=== PATIENT | female | born 1975 | race Caucasian/White ===

== ENCOUNTER 2017-12-26 14:12 | Emergency (ER) | payer BC ==
[2017-12-26 14:54] LABS: ADD MAN DIFF? NO
[2017-12-26 14:58] LABS: BASO # 0.1 x10^3/uL (0.0-0.2); BASO % 1 % (0-3); EOS # 0.1 x10^3/uL (0.0-0.7); EOS % 1 % (0-3); HEMATOCRIT 38.3 % (36.0-47.0); HEMOGLOBIN 12.8 g/dL (12.0-15.5); LYMPH # 3.1 x10^3/uL (1.0-4.8); LYMPH % 35 % (24-48); MEAN CORPUSCULAR HEMOGLOBIN 28 pg (25-35); MEAN CORPUSCULAR HGB CONC 33 g/dL (31-37); MEAN CORPUSCULAR VOLUME 83 fL (79-100); MONO # 0.6 x10^3/uL (0.0-1.1); MONO % 6 % (0-9); NEUT # 5.1 x10^3uL (1.8-7.7); NEUT % 57 % (31-73); PLATELET COUNT 319 x10^3/uL (140-400); RED BLOOD COUNT 4.61 x10^6/uL (3.50-5.40); RED CELL DISTRIBUTION WIDTH 15.1 % (11.5-14.5); WHITE BLOOD COUNT 8.9 x10^3/uL (4.0-11.0)
[2017-12-26 15:08] LABS: ANION GAP 10 (6-14); BLOOD UREA NITROGEN 11 mg/dL (7-20); CARBON DIOXIDE 25 mmol/L (21-32); CHLORIDE 105 mmol/L (98-107); CREATININE 0.7 mg/dL (0.6-1.0); GFR 92.2; GLUCOSE 96 mg/dL (70-99); POTASSIUM 3.6 mmol/L (3.5-5.1); SODIUM 140 mmol/L (136-145)
[2017-12-26 15:13] LABS: D-DIMER 0.33 ug/mlFEU (0.00-0.50)
[2017-12-26 15:14] LABS: ALBUMIN 3.5 g/dL (3.4-5.0); ALK PHOS 53 U/L (46-116); ALT (SGPT) 18 U/L (14-59); AST (SGOT) 12 U/L (15-37); DIRECT BILIRUBIN 0.1 mg/dL (0.0-0.2); LIPASE 153 U/L (73-393); TOTAL BILIRUBIN 0.4 mg/dL (0.2-1.0); TOTAL PROTEIN 7.1 g/dL (6.4-8.2)
[2017-12-26 15:20] LABS: TROPONINI < 0.017 ng/mL (0.000-0.055)
[2017-12-26 15:22] LABS: NT-PRO BNP 159 pg/mL (0-124)
[2017-12-26] MEDS: ASPIRIN 325 MG TABLET PO ×2 (15:23)
[2017-12-26] MEDS: NITROGLYCERIN SUBLINGUAL 0.4 MG BOTTLE OF 25. SL ×2 (15:25)
[2017-12-26] MEDS ORDERED: NITROGLYCERIN SUBLINGUAL 0.4 MG BOTTLE OF 25. SL ×2 (15:45)
[2017-12-26] MEDS ORDERED: ONDANSETRON PF 4 MG/2 ML VIAL. IV ×2 (15:45)
[2017-12-26] MEDS: IV NORMAL SALINE 1000ML BAG 1,000 ML IV ×2 (15:56)
== END 2017-12-26 16:20 | disposition left against medical advice (07) ==
LOC: ER 16:20
DX: R07.9 Chest pain, unspecified (principal); E78.00 Pure hypercholesterolemia, unspecified; Z87.891 Personal history of nicotine dependence; Z88.2 Allergy status to sulfonamides; Z88.1 Allergy status to other antibiotic agents; Z88.5 Allergy status to narcotic agent
CPT/HCPCS: 36415; 71045; 80048; 80076; 83690; 83880; 84484; 85025; 85379; 93005; 99285-25; J7030

== ENCOUNTER 2017-12-30 03:49 | Inpatient (IN) | payer BC ==
[2017-12-30 04:05] LABS: URINE HCG POC HCG NEGATIVE (Negative)
[2017-12-30] MEDS: IV NORMAL SALINE 1000ML BAG 1,000 ML IV ×7 (04:30→16:36)
[2017-12-30 04:31] LABS: ADD MAN DIFF? NO; BASO # 0.1 x10^3/uL (0.0-0.2); BASO % 1 % (0-3); EOS # 0.2 x10^3/uL (0.0-0.7); EOS % 2 % (0-3); HEMATOCRIT 37.5 % (36.0-47.0); HEMOGLOBIN 12.3 g/dL (12.0-15.5); LYMPH # 3.6 x10^3/uL (1.0-4.8); LYMPH % 36 % (24-48); MEAN CORPUSCULAR HEMOGLOBIN 27 pg (25-35); MEAN CORPUSCULAR HGB CONC 33 g/dL (31-37); MEAN CORPUSCULAR VOLUME 83 fL (79-100); MONO # 0.8 x10^3/uL (0.0-1.1); MONO % 8 % (0-9); NEUT # 5.2 x10^3uL (1.8-7.7); NEUT % 53 % (31-73); PLATELET COUNT 331 x10^3/uL (140-400); RED CELL DISTRIBUTION WIDTH 15.3 % (11.5-14.5); WHITE BLOOD COUNT 9.8 x10^3/uL (4.0-11.0)
[2017-12-30] MEDS: fentaNYL PF VIAL 100 MCG/2 ML VIAL IV ×2 (04:31→04:47)
[2017-12-30 04:33] LABS: BILIRUBIN,URINE NEGATIVE (NEG); CLARITY,URINE CLOUDY; COLOR,URINE YELLOW; GLUCOSE,URINE NEGATIVE (NEG); NITRITE,URINE NEGATIVE (NEG); PROTEIN,URINE NEGATIVE (NEG-TRACE)
[2017-12-30 04:35] LABS: AGAP ISTAT 16 mmol/L (6-14); BUN ISTAT 9 mg/dL (8-26); CHLORIDE ISTAT 106 mmol/L (98-110); CREATININE ISTAT 0.7 mg/dL (0.5-1.4); GLUCOSE ISTAT 130 mg/dL (70-99); HEMATOCRIT ISTAT 36 % (36-40); HEMOGLOBIN ISTAT 12.2 g/dL (12-15); ION CA ISTAT 1.13 mmol/L (1.13-1.32); POTASSIUM ISTAT 3.9 mmol/L (3.5-5.0); SODIUM ISTAT 142 mmol/L (135-145); TOT CO2 ISTAT 26 mmol/L (23-32)
[2017-12-30 04:45] LABS: BACTERIA,URINE FEW /HPF (0-FEW); SQUAMOUS EPITHELIAL CELL,UR FEW /LPF; WBC,URINE OCC /HPF (0-4)
[2017-12-30 04:46] LABS: AMORPHOUS SEDIMENT,UR PRESENT /HPF
[2017-12-30 04:47] LABS: ANION GAP 8 (6-14); BLOOD UREA NITROGEN 10 mg/dL (7-20); BUN/CREATININE RATIO 13 (6-20); CALCIUM 8.3 mg/dL (8.5-10.1); CARBON DIOXIDE 28 mmol/L (21-32); CHLORIDE 105 mmol/L (98-107); CREATININE 0.8 mg/dL (0.6-1.0); GLUCOSE 136 mg/dL (70-99); POTASSIUM 3.9 mmol/L (3.5-5.1); SODIUM 141 mmol/L (136-145)
[2017-12-30] MEDS: ONDANSETRON PF 4 MG/2 ML VIAL. IV (04:51)
[2017-12-30 04:52] LABS: ALBUMIN 3.2 g/dL (3.4-5.0); ALBUMIN/GLOBULIN RATIO 0.9 (1.0-1.7); ALK PHOS 51 U/L (46-116); ALT (SGPT) 20 U/L (14-59); AST (SGOT) 16 U/L (15-37); DIRECT BILIRUBIN 0.1 mg/dL (0.0-0.2); LIPASE 172 U/L (73-393); TOTAL BILIRUBIN 0.3 mg/dL (0.2-1.0); TOTAL PROTEIN 6.8 g/dL (6.4-8.2)
[2017-12-30] MEDS: KETOROLAC 30 MG/ML INJ. IV (04:54)
[2017-12-30] MEDS ORDERED: ONDANSETRON PF 4 MG/2 ML VIAL. IV ×2 (05:30→14:15)
[2017-12-30] MEDS: MORPHINE SULFATE 4 MG/ML DISP.SYRIN. IV ×5 (06:10→23:50)
[2017-12-30] MEDS: ACETAMINOPHEN 325 MG TABLET. PO ×2 (10:39→18:34)
[2017-12-30] MEDS: cefTRIAXone IV Push 1 GM VIAL. IVP (11:23)
[2017-12-30] MEDS ORDERED: IV NORMAL SALINE 1000ML BAG 1,000 ML IV (13:40)
[2017-12-30] MEDS ORDERED: VASOPRESSIN 40 UNIT in IV DEXTROSE 5% 100 ML IV (13:45)
[2017-12-30] MEDS ORDERED: EPINEPHrine VIAL 8 MG in IV NORMAL SALINE 250ML 250 ML IV (13:45)
[2017-12-30] MEDS ORDERED: IV NORMAL SALINE 500ML BAG 500 ML IV (13:45)
[2017-12-30] MEDS: ACETAMINOPHEN 650 MG SUPP.RECT. PR (14:00)
[2017-12-30] MEDS: IV RINGERS,LACTATED 1000ML 1,000 ML IV (14:02)
[2017-12-30] MEDS ORDERED: fentaNYL PF VIAL 100 MCG/2 ML VIAL IV ×2 (14:15)
[2017-12-30] MEDS ORDERED: MORPHINE SULFATE 2 MG/ML DISP.SYRIN. IV (14:15)
[2017-12-30] MEDS ORDERED: HYDROmorphone 2 MG/ML VIAL IV (14:15)
[2017-12-30] MEDS ORDERED: PROCHLORPERAZINE 10 MG/2 ML VIAL. IV (14:15)
[2017-12-30] MEDS ORDERED: LIDOCAINE 1% PF 2 ML VIAL. ID (14:15)
[2017-12-30] MEDS ORDERED: SUCCINYLCHOLINE 200 MG/10 ML VIAL. (14:34)
[2017-12-30] MEDS ORDERED: PROPOFOL 20 ML IV (14:34)
[2017-12-30 14:35] LABS: PLATELET COUNT 148 x10^3/uL (140-400)
[2017-12-30] MEDS ORDERED: FAMOTIDINE 20 MG/2 ML VIAL (14:35)
[2017-12-30] MEDS ORDERED: PHENYLEPHRINE in 0.9% NACL PF 1 MG/10 ML SYRINGE. IV (14:35)
[2017-12-30] MEDS ORDERED: ONDANSETRON PF 4 MG/2 ML VIAL. (14:35)
[2017-12-30 14:38] LABS: ALBUMIN 2.5 g/dL (3.4-5.0); ALK PHOS 72 U/L (46-116); ALT (SGPT) 18 U/L (14-59); AST (SGOT) 26 U/L (15-37); DIRECT BILIRUBIN 0.5 mg/dL (0.0-0.2); TOTAL BILIRUBIN 0.8 mg/dL (0.2-1.0); TOTAL PROTEIN 5.4 g/dL (6.4-8.2)
[2017-12-30] MEDS ORDERED: 0.9 % SODIUM CHLORIDE 50 ML VIAL. IJ (14:38)
[2017-12-30] MEDS ORDERED: LIDOCAINE 2% JELLY 6ML IN APPLICATOR. (14:38)
[2017-12-30 14:39] LABS: INR 1.3 (0.8-1.1); PROTHROMBIN TIME PATIENT 15.4 SEC (11.7-14.0)
[2017-12-30 14:40] LABS: PARTIAL THROMBOPLASTIN TIME 32 SEC (24-38)
[2017-12-30 14:40] LABS: FIBRINOGEN 253 mg/dL (200-440)
[2017-12-30] MEDS ORDERED: ROCURONIUM 50 MG/5 ML VIAL. (14:54)
[2017-12-30 14:58] LABS: D-DIMER 12.31 ug/mlFEU (0.00-0.50)
[2017-12-30] MEDS: NORMAL SALINE IV (15:00)
[2017-12-30] MEDS: DAPTOMYCIN IV (15:00)
[2017-12-30] MEDS: IOHEXOL 300 MG/ML 100ML VIAL. (15:08)
[2017-12-30] MEDS ORDERED: NEOSTIGMINE METHYLSULFATE 5 MG/5 ML SYRINGE. (15:25)
[2017-12-30] MEDS ORDERED: GLYCOPYRROLATE 1 MG/5 ML VIAL. (15:25)
[2017-12-30 15:37] LABS: BASO % 0 % (0-3); EOS % 0 % (0-3); HEMATOCRIT 34.2 % (36.0-47.0); HEMOGLOBIN 11.3 g/dL (12.0-15.5); LYMPH # 0.3 x10^3/uL (1.0-4.8); LYMPH % 6 % (24-48); MEAN CORPUSCULAR HEMOGLOBIN 28 pg (25-35); MEAN CORPUSCULAR HGB CONC 33 g/dL (31-37); MEAN CORPUSCULAR VOLUME 84 fL (79-100); MONO % 1 % (0-9); NEUT % 93 % (31-73); PLATELET COUNT 151 x10^3/uL (140-400); RED BLOOD COUNT 4.08 x10^6/uL (3.50-5.40); RED CELL DISTRIBUTION WIDTH 15.3 % (11.5-14.5); WHITE BLOOD COUNT 4.2 x10^3/uL (4.0-11.0)
[2017-12-30] MEDS ORDERED: SEVOFLURANE 31 TO 60 MINUTES. IH (15:45)
[2017-12-30] MEDS ORDERED: ALBUMIN HUMAN 5% 500 ML IV (15:45)
[2017-12-30 16:10] LABS: ADD MAN DIFF? YES
[2017-12-30 16:52] LABS: LACTIC ACID 3.8 mmol/L (0.4-2.0)
[2017-12-30 17:00] LABS: % BANDS 31 % (0-9); % LYMPHS 6 % (24-48); % METAS 3 % (0-0); % MONOS 1 % (0-10); % SEGS 59 % (35-66)
[2017-12-30 17:01] LABS: PLT ESTIMATE ADEQUATE (ADEQUATE)
[2017-12-30 17:02] LABS: TOXIC VACUOLATION PRESENT
[2017-12-30 17:03] LABS: INFLUENZA A PATIENT POSITIVE (NEGATIVE); INFLUENZA B PATIENT NEGATIVE (NEGATIVE); OBC FLU VALID
[2017-12-30] MEDS: OSELTAMIVIR 75 MG CAPSULE PO ×2 (17:46→20:34)
[2017-12-30] MEDS ORDERED: IPRATRPIUM/ALBUTEROL 0.5/2.5MG 3 ML NEBU. (17:54)
[2017-12-30] MEDS: ALBUTEROL SULFATE 2.5 MG/3 ML NEBU. NEB ×2 (18:00→20:13)
[2017-12-30 19:33] LABS: PROCALCITONIN 35.15 ng/mL (0.00-0.10)
[2017-12-31] MEDS: NOREPINEPHRIN PREMIX 250 ML IV (01:11)
[2017-12-31] MEDS: MORPHINE SULFATE 4 MG/ML DISP.SYRIN. IV (03:27)
[2017-12-31] MEDS: IV NORMAL SALINE 1000ML BAG 1,000 ML IV ×2 (06:25→09:18)
[2017-12-31 06:45] LABS: ANION GAP 15 (6-14); BLOOD UREA NITROGEN 13 mg/dL (7-20); CALCIUM 7.5 mg/dL (8.5-10.1); CARBON DIOXIDE 18 mmol/L (21-32); CHLORIDE 109 mmol/L (98-107); CREATININE 1.2 mg/dL (0.6-1.0); GFR 49.5; GLUCOSE 226 mg/dL (70-99); POTASSIUM 4.4 mmol/L (3.5-5.1); SODIUM 142 mmol/L (136-145)
[2017-12-31 07:18] LABS: BASO # 0.2 x10^3/uL (0.0-0.2); BASO % 1 % (0-3); EOS % 0 % (0-3); HEMATOCRIT 35.4 % (36.0-47.0); HEMOGLOBIN 11.2 g/dL (12.0-15.5); LYMPH # 0.6 x10^3/uL (1.0-4.8); LYMPH % 2 % (24-48); MEAN CORPUSCULAR HEMOGLOBIN 27 pg (25-35); MEAN CORPUSCULAR HGB CONC 32 g/dL (31-37); MEAN CORPUSCULAR VOLUME 85 fL (79-100); MONO # 0.9 x10^3/uL (0.0-1.1); MONO % 2 % (0-9); NEUT # 35.1 x10^3uL (1.8-7.7); NEUT % 95 % (31-73); PLATELET COUNT 167 x10^3/uL (140-400); RED BLOOD COUNT 4.17 x10^6/uL (3.50-5.40); RED CELL DISTRIBUTION WIDTH 16.1 % (11.5-14.5); WHITE BLOOD COUNT 36.7 x10^3/uL (4.0-11.0)
[2017-12-31 07:21] LABS: ADD MAN DIFF? YES
[2017-12-31] MEDS: ALBUTEROL SULFATE 2.5 MG/3 ML NEBU. NEB ×5 (08:31→19:47)
[2017-12-31] MEDS ORDERED: CEFEPIME HCL 1 GM in IV DEXTROSE 5% 50 ML IV (09:15)
[2017-12-31] MEDS: OSELTAMIVIR 75 MG CAPSULE PO ×2 (09:18→20:04)
[2017-12-31] MEDS: CEFEPIME HCL IV Push 1 GM VIAL. IVP ×3 (10:01→20:29)
[2017-12-31 10:21] LABS: % BANDS 14 % (0-9); % LYMPHS 1 % (24-48); % METAS 2 % (0-0); % MONOS 1 % (0-10); % SEGS 82 % (35-66)
[2017-12-31 10:23] LABS: PLT ESTIMATE ADEQUATE (ADEQUATE)
[2017-12-31 10:24] LABS: TOXIC VACUOLATION SLIGHT
[2017-12-31] MEDS: MORPHINE SULFATE 2 MG/ML DISP.SYRIN. IV ×3 (10:32→20:16)
[2017-12-31] MEDS: SALIVA STIMULANT AGENT 44ML SPRAY BOTTLE. PO (10:43)
[2017-12-31] MEDS: LINEZOLID 600 MG TABLET PO ×2 (10:45→20:04)
[2017-12-31] MEDS: ACETAMINOPHEN 325 MG TABLET. PO (20:03)
[2017-12-31] MEDS: LACTOBACILLUS RHAMNOSUS GG 1 CAPSULE. PO (20:04)
[2017-12-31 20:18] LABS: MRSA BY PCR Negative (Negative)
[2018-01-01] MEDS: IV NORMAL SALINE 1000ML BAG 1,000 ML IV ×2 (01:58→08:09)
[2018-01-01] MEDS: NOREPINEPHRIN PREMIX 250 ML IV (02:01)
[2018-01-01] MEDS: MORPHINE SULFATE 2 MG/ML DISP.SYRIN. IV ×2 (04:50→12:45)
[2018-01-01] MEDS: CEFEPIME HCL IV Push 1 GM VIAL. IVP ×3 (06:29→22:14)
[2018-01-01 06:56] LABS: ADD MAN DIFF? NO
[2018-01-01 07:17] LABS: BASO % 0 % (0-3); EOS # 0.1 x10^3/uL (0.0-0.7); EOS % 1 % (0-3); HEMATOCRIT 32.4 % (36.0-47.0); HEMOGLOBIN 10.5 g/dL (12.0-15.5); LYMPH % 5 % (24-48); MEAN CORPUSCULAR HEMOGLOBIN 27 pg (25-35); MEAN CORPUSCULAR HGB CONC 33 g/dL (31-37); MEAN CORPUSCULAR VOLUME 83 fL (79-100); MONO # 0.5 x10^3/uL (0.0-1.1); MONO % 3 % (0-9); NEUT % 92 % (31-73); PLATELET COUNT 126 x10^3/uL (140-400); RED BLOOD COUNT 3.89 x10^6/uL (3.50-5.40); RED CELL DISTRIBUTION WIDTH 15.7 % (11.5-14.5); WHITE BLOOD COUNT 19.6 x10^3/uL (4.0-11.0)
[2018-01-01 07:26] LABS: ANION GAP 8 (6-14); BLOOD UREA NITROGEN 11 mg/dL (7-20); CALCIUM 8.2 mg/dL (8.5-10.1); CARBON DIOXIDE 24 mmol/L (21-32); CHLORIDE 110 mmol/L (98-107); CREATININE 0.7 mg/dL (0.6-1.0); GFR 92.2; GLUCOSE 126 mg/dL (70-99); POTASSIUM 3.7 mmol/L (3.5-5.1); SODIUM 142 mmol/L (136-145)
[2018-01-01] MEDS: LACTOBACILLUS RHAMNOSUS GG 1 CAPSULE. PO ×2 (08:08→21:32)
[2018-01-01] MEDS: OSELTAMIVIR 75 MG CAPSULE PO ×2 (08:08→21:33)
[2018-01-01] MEDS: LINEZOLID 600 MG TABLET PO ×2 (08:09→22:15)
[2018-01-01 08:32] LABS: BASE EXCESS ABG -3 mmol/L (-3-3); HCO3 ABG 22 mmol/L (21-28); PCO2 ABG 36 mmHg (35-46); PH ABG 7.39 (7.35-7.45); PO2 ABG 69 mmHg (75-108); SAT O2 ABG 94 % (92-99)
[2018-01-01] MEDS: ALBUTEROL SULFATE 2.5 MG/3 ML NEBU. NEB (08:41)
[2018-01-01 09:53] LABS: FIO2 ABG 50
[2018-01-01] MEDS ORDERED: fentaNYL PF VIAL 100 MCG/2 ML VIAL (10:17)
[2018-01-01] MEDS: methylPREDNISolone SOD SUCC PF 125 MG/2 ML VIAL. IV ×3 (10:26→22:14)
[2018-01-01] MEDS: fentaNYL PF VIAL 100 MCG/2 ML VIAL IM (10:27)
[2018-01-01] MEDS: FUROSEMIDE 20 MG/2 ML VIAL. IVP (10:27)
[2018-01-01] MEDS: AMINO AC 3%/ELECTROLYTE/GLYCER 1,000 ML IV (11:16)
[2018-01-01] MEDS: SUCCINYLCHOLINE 200 MG/10 ML VIAL. IV ×2 (12:00→12:06)
[2018-01-01] MEDS: PROPOFOL 100 ML IV ×3 (12:07→17:48)
[2018-01-01] MEDS: IPRATRPIUM/ALBUTEROL 0.5/2.5MG 3 ML NEBU. NEB ×4 (12:10→23:35)
[2018-01-01] MEDS: BUDESONIDE 0.5 MG/2 ML NEBU. NEB ×2 (12:10→19:37)
[2018-01-01] MEDS ORDERED: MIDAZOLAM HCL/PF 5 MG/5 ML VIAL. (12:28)
[2018-01-01] MEDS: MIDAZOLAM HCL/PF 5 MG/5 ML VIAL. IV (13:19)
[2018-01-01] MEDS: VECURONIUM BOLUS 10 MG VIAL. IV (13:24)
[2018-01-02] MEDS: PROPOFOL 100 ML IV ×8 (01:38→23:40)
[2018-01-02] MEDS: AMINO AC 3%/ELECTROLYTE/GLYCER 1,000 ML IV ×3 (01:39→23:39)
[2018-01-02] MEDS: IV NORMAL SALINE 1000ML BAG 1,000 ML IV ×2 (01:39→10:49)
[2018-01-02] MEDS: IPRATRPIUM/ALBUTEROL 0.5/2.5MG 3 ML NEBU. NEB ×6 (03:19→23:25)
[2018-01-02] MEDS: methylPREDNISolone SOD SUCC PF 125 MG/2 ML VIAL. IV ×3 (05:48→21:12)
[2018-01-02] MEDS: CEFEPIME HCL IV Push 1 GM VIAL. IVP ×3 (06:00→21:13)
[2018-01-02 06:08] LABS: ADD MAN DIFF? NO
[2018-01-02 06:15] LABS: BASO % 0 % (0-3); EOS # 0.1 x10^3/uL (0.0-0.7); EOS % 0 % (0-3); HEMATOCRIT 30.9 % (36.0-47.0); HEMOGLOBIN 10.2 g/dL (12.0-15.5); LYMPH # 0.6 x10^3/uL (1.0-4.8); LYMPH % 3 % (24-48); MEAN CORPUSCULAR HEMOGLOBIN 27 pg (25-35); MEAN CORPUSCULAR HGB CONC 33 g/dL (31-37); MEAN CORPUSCULAR VOLUME 83 fL (79-100); MONO # 0.4 x10^3/uL (0.0-1.1); MONO % 2 % (0-9); NEUT # 18.5 x10^3uL (1.8-7.7); NEUT % 95 % (31-73); PLATELET COUNT 140 x10^3/uL (140-400); RED BLOOD COUNT 3.74 x10^6/uL (3.50-5.40); RED CELL DISTRIBUTION WIDTH 15.8 % (11.5-14.5); WHITE BLOOD COUNT 19.6 x10^3/uL (4.0-11.0)
[2018-01-02 06:33] LABS: ANION GAP 7 (6-14); BLOOD UREA NITROGEN 16 mg/dL (7-20); CALCIUM 7.8 mg/dL (8.5-10.1); CARBON DIOXIDE 29 mmol/L (21-32); CHLORIDE 108 mmol/L (98-107); CREATININE 0.6 mg/dL (0.6-1.0); GFR 110.2; GLUCOSE 186 mg/dL (70-99); POTASSIUM 3.8 mmol/L (3.5-5.1); SODIUM 144 mmol/L (136-145)
[2018-01-02 06:35] LABS: ALBUMIN 2.2 g/dL (3.4-5.0); ALK PHOS 73 U/L (46-116); ALT (SGPT) 26 U/L (14-59); AST (SGOT) 30 U/L (15-37); DIRECT BILIRUBIN 0.2 mg/dL (0.0-0.2); TOTAL BILIRUBIN 0.3 mg/dL (0.2-1.0)
[2018-01-02] MEDS: LINEZOLID 600 MG TABLET PO ×2 (07:59→21:12)
[2018-01-02] MEDS: FAMOTIDINE 20 MG/2 ML VIAL IVP ×2 (07:59→21:12)
[2018-01-02] MEDS: ENOXAPARIN 40 MG/0.4 ML SYRINGE. SQ (07:59)
[2018-01-02] MEDS: OSELTAMIVIR 75 MG CAPSULE PO ×2 (07:59→21:12)
[2018-01-02] MEDS: LACTOBACILLUS RHAMNOSUS GG 1 CAPSULE. PO ×2 (07:59→21:12)
[2018-01-02] MEDS: BUDESONIDE 0.5 MG/2 ML NEBU. NEB ×2 (08:29→19:48)
[2018-01-02 08:42] LABS: BASE EXCESS ABG -1 mmol/L (-3-3); HCO3 ABG 25 mmol/L (21-28); PCO2 ABG 50 mmHg (35-46); PH ABG 7.33 (7.35-7.45); PO2 ABG 65 mmHg (75-108); SAT O2 ABG 91 % (92-99)
[2018-01-02] MEDS ORDERED: CONTRAST GIVEN MC (09:15)
[2018-01-02 09:25] LABS: FIO2 ABG 60
[2018-01-02] MEDS: IOHEXOL 300 MG/ML 100ML VIAL. IV (09:49)
[2018-01-02] MEDS: CHLORHEXIDINE 0.12% 15 ML MOUTHWASH. MM ×2 (13:19→21:12)
[2018-01-02] MEDS: ACETAMINOPHEN 325 MG TABLET. PO (21:12)
[2018-01-03] MEDS: AMINO AC 3%/ELECTROLYTE/GLYCER 1,000 ML IV ×2 (02:09→17:38)
[2018-01-03] MEDS: PROPOFOL 100 ML IV ×6 (02:09→19:32)
[2018-01-03] MEDS: IPRATRPIUM/ALBUTEROL 0.5/2.5MG 3 ML NEBU. NEB ×5 (03:25→19:10)
[2018-01-03] MEDS: CEFEPIME HCL IV Push 1 GM VIAL. IVP ×3 (05:48→21:04)
[2018-01-03] MEDS: methylPREDNISolone SOD SUCC PF 125 MG/2 ML VIAL. IV ×3 (05:48→21:03)
[2018-01-03 05:59] LABS: ADD MAN DIFF? NO
[2018-01-03 06:04] LABS: BASO % 0 % (0-3); EOS % 0 % (0-3); HEMATOCRIT 30.5 % (36.0-47.0); LYMPH # 0.9 x10^3/uL (1.0-4.8); LYMPH % 7 % (24-48); MEAN CORPUSCULAR HEMOGLOBIN 27 pg (25-35); MEAN CORPUSCULAR HGB CONC 33 g/dL (31-37); MEAN CORPUSCULAR VOLUME 83 fL (79-100); MONO # 0.4 x10^3/uL (0.0-1.1); MONO % 3 % (0-9); NEUT # 11.7 x10^3uL (1.8-7.7); NEUT % 90 % (31-73); PLATELET COUNT 148 x10^3/uL (140-400); RED BLOOD COUNT 3.66 x10^6/uL (3.50-5.40); RED CELL DISTRIBUTION WIDTH 16.2 % (11.5-14.5)
[2018-01-03 06:16] LABS: ANION GAP 6 (6-14); BLOOD UREA NITROGEN 19 mg/dL (7-20); CALCIUM 7.8 mg/dL (8.5-10.1); CARBON DIOXIDE 29 mmol/L (21-32); CHLORIDE 109 mmol/L (98-107); CREATININE 0.5 mg/dL (0.6-1.0); GLUCOSE 175 mg/dL (70-99); POTASSIUM 3.9 mmol/L (3.5-5.1); SODIUM 144 mmol/L (136-145)
[2018-01-03] MEDS: BUDESONIDE 0.5 MG/2 ML NEBU. NEB ×2 (07:36→19:10)
[2018-01-03 08:08] LABS: BASE EXCESS ABG 1 mmol/L (-3-3); HCO3 ABG 26 mmol/L (21-28); PCO2 ABG 42 mmHg (35-46); PO2 ABG 110 mmHg (75-108); SAT O2 ABG 98 % (92-99)
[2018-01-03 08:12] LABS: FIO2 ABG 40
[2018-01-03] MEDS: CHLORHEXIDINE 0.12% 15 ML MOUTHWASH. MM ×2 (09:10→21:02)
[2018-01-03] MEDS: LINEZOLID 600 MG TABLET PO ×2 (10:12→21:03)
[2018-01-03] MEDS: ENOXAPARIN 40 MG/0.4 ML SYRINGE. SQ (10:13)
[2018-01-03] MEDS: OSELTAMIVIR 75 MG CAPSULE PO ×2 (10:13→21:03)
[2018-01-03] MEDS: IV NORMAL SALINE 1000ML BAG 1,000 ML IV ×2 (10:14→19:32)
[2018-01-03] MEDS: FAMOTIDINE 20 MG/2 ML VIAL IVP ×2 (10:14→21:03)
[2018-01-04] MEDS: PROPOFOL 100 ML IV ×6 (00:10→22:51)
[2018-01-04] MEDS: IPRATRPIUM/ALBUTEROL 0.5/2.5MG 3 ML NEBU. NEB ×7 (00:17→23:07)
[2018-01-04] MEDS: AMINO AC 3%/ELECTROLYTE/GLYCER 1,000 ML IV (01:59)
[2018-01-04] MEDS: methylPREDNISolone SOD SUCC PF 125 MG/2 ML VIAL. IV ×3 (05:10→21:26)
[2018-01-04] MEDS: CEFEPIME HCL IV Push 1 GM VIAL. IVP ×3 (05:11→21:26)
[2018-01-04 05:42] LABS: BASO % 0 % (0-3); EOS % 0 % (0-3); HEMATOCRIT 31.6 % (36.0-47.0); HEMOGLOBIN 10.3 g/dL (12.0-15.5); LYMPH # 0.9 x10^3/uL (1.0-4.8); LYMPH % 10 % (24-48); MEAN CORPUSCULAR HEMOGLOBIN 27 pg (25-35); MEAN CORPUSCULAR HGB CONC 33 g/dL (31-37); MEAN CORPUSCULAR VOLUME 83 fL (79-100); MONO # 0.7 x10^3/uL (0.0-1.1); MONO % 8 % (0-9); NEUT # 7.3 x10^3uL (1.8-7.7); NEUT % 82 % (31-73); PLATELET COUNT 153 x10^3/uL (140-400); RED BLOOD COUNT 3.82 x10^6/uL (3.50-5.40); RED CELL DISTRIBUTION WIDTH 16.1 % (11.5-14.5); WHITE BLOOD COUNT 8.9 x10^3/uL (4.0-11.0)
[2018-01-04 05:53] LABS: ADD MAN DIFF? YES
[2018-01-04 06:00] LABS: ANION GAP 5 (6-14); BLOOD UREA NITROGEN 27 mg/dL (7-20); CALCIUM 7.8 mg/dL (8.5-10.1); CARBON DIOXIDE 31 mmol/L (21-32); CHLORIDE 109 mmol/L (98-107); CREATININE 0.6 mg/dL (0.6-1.0); GFR 110.2; GLUCOSE 217 mg/dL (70-99); POTASSIUM 3.8 mmol/L (3.5-5.1); SODIUM 145 mmol/L (136-145)
[2018-01-04 07:31] LABS: BASE EXCESS ABG 2 mmol/L (-3-3); HCO3 ABG 26 mmol/L (21-28); PCO2 ABG 41 mmHg (35-46); PH ABG 7.42 (7.35-7.45); PO2 ABG 97 mmHg (75-108); SAT O2 ABG 97 % (92-99)
[2018-01-04] MEDS: BUDESONIDE 0.5 MG/2 ML NEBU. NEB ×2 (08:00→20:18)
[2018-01-04 08:10] LABS: FIO2 ABG 40
[2018-01-04] MEDS: LINEZOLID 600 MG TABLET PO (09:02)
[2018-01-04] MEDS: OSELTAMIVIR 75 MG CAPSULE PO (09:02)
[2018-01-04] MEDS: ENOXAPARIN 40 MG/0.4 ML SYRINGE. SQ (09:02)
[2018-01-04] MEDS: CHLORHEXIDINE 0.12% 15 ML MOUTHWASH. MM ×2 (09:03→21:34)
[2018-01-04] MEDS: FAMOTIDINE 20 MG/2 ML VIAL IVP ×2 (09:03→21:25)
[2018-01-04 09:29] LABS: % ATYL 1 % (0-0); % BANDS 5 % (0-9); % LYMPHS 6 % (24-48); % MONOS 7 % (0-10); % SEGS 81 % (35-66); NUCLEATED RBC 1
[2018-01-04 09:30] LABS: PLT ESTIMATE ADEQUATE (ADEQUATE)
[2018-01-04] MEDS: IV NORMAL SALINE 1000ML BAG 1,000 ML IV (20:07)
[2018-01-05] MEDS: AMINO AC 3%/ELECTROLYTE/GLYCER 1,000 ML IV (02:30)
[2018-01-05] MEDS: PROPOFOL 100 ML IV ×5 (02:43→21:21)
[2018-01-05] MEDS: IPRATRPIUM/ALBUTEROL 0.5/2.5MG 3 ML NEBU. NEB ×6 (04:05→23:29)
[2018-01-05] MEDS: methylPREDNISolone SOD SUCC PF 125 MG/2 ML VIAL. IV ×3 (05:23→21:22)
[2018-01-05] MEDS: CEFEPIME HCL IV Push 1 GM VIAL. IVP ×3 (05:23→21:21)
[2018-01-05 05:27] LABS: ADD MAN DIFF? NO
[2018-01-05 05:57] LABS: BASO % 0 % (0-3); EOS % 0 % (0-3); HEMATOCRIT 33.4 % (36.0-47.0); LYMPH # 1.1 x10^3/uL (1.0-4.8); LYMPH % 13 % (24-48); MEAN CORPUSCULAR HEMOGLOBIN 27 pg (25-35); MEAN CORPUSCULAR HGB CONC 33 g/dL (31-37); MEAN CORPUSCULAR VOLUME 83 fL (79-100); MONO # 0.8 x10^3/uL (0.0-1.1); MONO % 9 % (0-9); NEUT # 7.1 x10^3uL (1.8-7.7); NEUT % 78 % (31-73); PLATELET COUNT 191 x10^3/uL (140-400); RED BLOOD COUNT 4.03 x10^6/uL (3.50-5.40); RED CELL DISTRIBUTION WIDTH 15.8 % (11.5-14.5); WHITE BLOOD COUNT 9.1 x10^3/uL (4.0-11.0)
[2018-01-05 06:35] LABS: ANION GAP 7 (6-14); BLOOD UREA NITROGEN 26 mg/dL (7-20); CALCIUM 7.8 mg/dL (8.5-10.1); CARBON DIOXIDE 30 mmol/L (21-32); CHLORIDE 107 mmol/L (98-107); CREATININE 0.6 mg/dL (0.6-1.0); GFR 110.2; GLUCOSE 207 mg/dL (70-99); POTASSIUM 4.5 mmol/L (3.5-5.1); SODIUM 144 mmol/L (136-145)
[2018-01-05] MEDS: FAMOTIDINE 20 MG/2 ML VIAL IVP ×2 (07:58→21:22)
[2018-01-05] MEDS: ACETAMINOPHEN 325 MG TABLET. PO (07:58)
[2018-01-05] MEDS: CHLORHEXIDINE 0.12% 15 ML MOUTHWASH. MM ×2 (07:58→21:00)
[2018-01-05] MEDS: ENOXAPARIN 40 MG/0.4 ML SYRINGE. SQ (08:03)
[2018-01-05] MEDS: IV NORMAL SALINE 1000ML BAG 1,000 ML IV (08:04)
[2018-01-05 09:19] LABS: BASE EXCESS ABG 3 mmol/L (-3-3); HCO3 ABG 27 mmol/L (21-28); PCO2 ABG 40 mmHg (35-46); PH ABG 7.45 (7.35-7.45); PO2 ABG 94 mmHg (75-108); SAT O2 ABG 97 % (92-99)
[2018-01-05 09:22] LABS: FIO2 ABG 40
[2018-01-05] MEDS: BUDESONIDE 0.5 MG/2 ML NEBU. NEB ×2 (09:26→20:37)
[2018-01-05] MEDS: valACYclovir 500 MG TABLET. PO ×2 (09:48→21:22)
[2018-01-05] MEDS ORDERED: DEXTROSE 50% 25 GM / 50ML DISP.SYRIN. IV (12:30)
[2018-01-05] MEDS: INSULIN ASPART 300 UNITS/3 ML INSULN.PEN SQ (17:43)
[2018-01-05 17:44] LABS: POC GLUCOSE 166 mg/dL (70-99)
[2018-01-06] MEDS: PROPOFOL 100 ML IV ×3 (00:09→09:03)
[2018-01-06 01:02] LABS: POC GLUCOSE 151 mg/dL (70-99)
[2018-01-06 01:02] LABS: POC GLUCOSE 99 mg/dL (70-99)
[2018-01-06] MEDS: IPRATRPIUM/ALBUTEROL 0.5/2.5MG 3 ML NEBU. NEB ×5 (03:59→23:51)
[2018-01-06] MEDS: CEFEPIME HCL IV Push 1 GM VIAL. IVP ×3 (06:29→22:05)
[2018-01-06] MEDS: methylPREDNISolone SOD SUCC PF 125 MG/2 ML VIAL. IV ×3 (06:29→22:05)
[2018-01-06] MEDS: BUDESONIDE 0.5 MG/2 ML NEBU. NEB ×2 (06:57→20:00)
[2018-01-06 07:12] LABS: BASE EXCESS ABG 5 mmol/L (-3-3); HCO3 ABG 28 mmol/L (21-28); PCO2 ABG 37 mmHg (35-46); PO2 ABG 95 mmHg (75-108); SAT O2 ABG 97 % (92-99)
[2018-01-06 08:13] LABS: FIO2 ABG 40
[2018-01-06] MEDS: FAMOTIDINE 20 MG/2 ML VIAL IVP ×2 (08:17→20:47)
[2018-01-06] MEDS: valACYclovir 500 MG TABLET. PO ×2 (08:17→21:00)
[2018-01-06] MEDS: ENOXAPARIN 40 MG/0.4 ML SYRINGE. SQ (08:17)
[2018-01-06] MEDS: CHLORHEXIDINE 0.12% 15 ML MOUTHWASH. MM ×2 (08:18→21:00)
[2018-01-06 09:39] LABS: ADD MAN DIFF? NO
[2018-01-06 09:49] LABS: BASO % 0 % (0-3); EOS % 0 % (0-3); HEMOGLOBIN 11.5 g/dL (12.0-15.5); LYMPH # 1.4 x10^3/uL (1.0-4.8); LYMPH % 12 % (24-48); MEAN CORPUSCULAR HEMOGLOBIN 27 pg (25-35); MEAN CORPUSCULAR HGB CONC 34 g/dL (31-37); MEAN CORPUSCULAR VOLUME 80 fL (79-100); MONO % 8 % (0-9); NEUT # 9.3 x10^3uL (1.8-7.7); NEUT % 80 % (31-73); PLATELET COUNT 250 x10^3/uL (140-400); RED BLOOD COUNT 4.28 x10^6/uL (3.50-5.40); RED CELL DISTRIBUTION WIDTH 15.4 % (11.5-14.5); WHITE BLOOD COUNT 11.6 x10^3/uL (4.0-11.0)
[2018-01-06 10:07] LABS: ANION GAP 4 (6-14); BLOOD UREA NITROGEN 19 mg/dL (7-20); CALCIUM 8.2 mg/dL (8.5-10.1); CARBON DIOXIDE 32 mmol/L (21-32); CHLORIDE 105 mmol/L (98-107); CREATININE 0.5 mg/dL (0.6-1.0); GLUCOSE 138 mg/dL (70-99); POTASSIUM 4.6 mmol/L (3.5-5.1); SODIUM 141 mmol/L (136-145)
[2018-01-06 10:57] LABS: BASE EXCESS ABG 6 mmol/L (-3-3); HCO3 ABG 30 mmol/L (21-28); PCO2 ABG 40 mmHg (35-46); PH ABG 7.49 (7.35-7.45); PO2 ABG 80 mmHg (75-108); SAT O2 ABG 95 % (92-99)
[2018-01-06 11:01] LABS: FIO2 ABG 40
[2018-01-06] MEDS: INSULIN ASPART 300 UNITS/3 ML INSULN.PEN SQ ×3 (12:00→17:30)
[2018-01-06] MEDS: FUROSEMIDE 40 MG/4 ML VIAL. IVP (12:24)
[2018-01-06 12:33] LABS: POC GLUCOSE 115 mg/dL (70-99)
[2018-01-06] MEDS: IV NORMAL SALINE 1000ML BAG 1,000 ML IV ×2 (12:51→22:06)
[2018-01-06 17:36] LABS: POC GLUCOSE 130 mg/dL (70-99)
[2018-01-06] MEDS: MORPHINE SULFATE 2 MG/ML DISP.SYRIN. IV (17:47)
[2018-01-06] MEDS: ONDANSETRON PF 4 MG/2 ML VIAL. IV (20:48)
[2018-01-06] MEDS: ACYCLOVIR 5% TOPICAL OINT 5GM TUBE. TP (20:49)
[2018-01-07] MEDS: MORPHINE SULFATE 2 MG/ML DISP.SYRIN. IV ×3 (00:08→21:14)
[2018-01-07 00:23] LABS: POC GLUCOSE 132 mg/dL (70-99)
[2018-01-07] MEDS: IPRATRPIUM/ALBUTEROL 0.5/2.5MG 3 ML NEBU. NEB ×6 (04:08→19:28)
[2018-01-07] MEDS: INSULIN ASPART 300 UNITS/3 ML INSULN.PEN SQ ×4 (06:00→18:00)
[2018-01-07] MEDS: CEFEPIME HCL IV Push 1 GM VIAL. IVP ×3 (06:17→22:07)
[2018-01-07 06:19] LABS: ADD MAN DIFF? NO
[2018-01-07] MEDS: methylPREDNISolone SOD SUCC PF 125 MG/2 ML VIAL. IV ×2 (06:20→20:35)
[2018-01-07] MEDS: ACYCLOVIR 5% TOPICAL OINT 5GM TUBE. TP ×5 (06:20→20:34)
[2018-01-07 06:29] LABS: POC GLUCOSE 118 mg/dL (70-99)
[2018-01-07 06:33] LABS: ANION GAP 5 (6-14); BLOOD UREA NITROGEN 19 mg/dL (7-20); CALCIUM 8.1 mg/dL (8.5-10.1); CARBON DIOXIDE 30 mmol/L (21-32); CHLORIDE 103 mmol/L (98-107); CREATININE 0.4 mg/dL (0.6-1.0); GFR 175.9; GLUCOSE 128 mg/dL (70-99); POTASSIUM 4.3 mmol/L (3.5-5.1); SODIUM 138 mmol/L (136-145)
[2018-01-07 06:40] LABS: BASO % 0 % (0-3); EOS % 0 % (0-3); HEMATOCRIT 33.2 % (36.0-47.0); LYMPH # 1.8 x10^3/uL (1.0-4.8); LYMPH % 16 % (24-48); MEAN CORPUSCULAR HEMOGLOBIN 27 pg (25-35); MEAN CORPUSCULAR HGB CONC 33 g/dL (31-37); MEAN CORPUSCULAR VOLUME 82 fL (79-100); MONO # 0.8 x10^3/uL (0.0-1.1); MONO % 7 % (0-9); NEUT # 8.9 x10^3uL (1.8-7.7); NEUT % 77 % (31-73); PLATELET COUNT 271 x10^3/uL (140-400); RED BLOOD COUNT 4.06 x10^6/uL (3.50-5.40); RED CELL DISTRIBUTION WIDTH 15.5 % (11.5-14.5); WHITE BLOOD COUNT 11.5 x10^3/uL (4.0-11.0)
[2018-01-07] MEDS: BUDESONIDE 0.5 MG/2 ML NEBU. NEB ×2 (08:02→19:28)
[2018-01-07] MEDS: FAMOTIDINE 20 MG/2 ML VIAL IVP ×2 (08:06→20:34)
[2018-01-07] MEDS: CHLORHEXIDINE 0.12% 15 ML MOUTHWASH. MM ×2 (08:07→20:36)
[2018-01-07] MEDS: valACYclovir 500 MG TABLET. PO ×3 (08:07→21:00)
[2018-01-07] MEDS: ENOXAPARIN 40 MG/0.4 ML SYRINGE. SQ (08:07)
[2018-01-07 13:10] LABS: POC GLUCOSE 135 mg/dL (70-99)
[2018-01-07 17:49] LABS: POC GLUCOSE 118 mg/dL (70-99)
[2018-01-07] MEDS: IV NORMAL SALINE 1000ML BAG 1,000 ML IV (19:00)
[2018-01-07] MEDS: LIDO:MAALOX:BENADRYL 1:1:1 180 ML BOTTLE. PO (20:34)
[2018-01-08 00:04] LABS: POC GLUCOSE 115 mg/dL (70-99)
[2018-01-08] MEDS: IPRATRPIUM/ALBUTEROL 0.5/2.5MG 3 ML NEBU. NEB ×7 (00:07→22:56)
[2018-01-08] MEDS: ACYCLOVIR 5% TOPICAL OINT 5GM TUBE. TP ×5 (05:26→20:55)
[2018-01-08] MEDS: CEFEPIME HCL IV Push 1 GM VIAL. IVP (05:26)
[2018-01-08 05:57] LABS: ADD MAN DIFF? NO
[2018-01-08] MEDS: INSULIN ASPART 300 UNITS/3 ML INSULN.PEN SQ ×4 (06:00→18:00)
[2018-01-08 06:05] LABS: BASO % 0 % (0-3); EOS % 0 % (0-3); HEMATOCRIT 34.5 % (36.0-47.0); HEMOGLOBIN 10.9 g/dL (12.0-15.5); LYMPH # 1.9 x10^3/uL (1.0-4.8); LYMPH % 19 % (24-48); MEAN CORPUSCULAR HEMOGLOBIN 27 pg (25-35); MEAN CORPUSCULAR HGB CONC 32 g/dL (31-37); MEAN CORPUSCULAR VOLUME 84 fL (79-100); MONO # 0.8 x10^3/uL (0.0-1.1); MONO % 8 % (0-9); NEUT # 7.5 x10^3uL (1.8-7.7); NEUT % 73 % (31-73); PLATELET COUNT 286 x10^3/uL (140-400); RED BLOOD COUNT 4.11 x10^6/uL (3.50-5.40); RED CELL DISTRIBUTION WIDTH 15.9 % (11.5-14.5); WHITE BLOOD COUNT 10.2 x10^3/uL (4.0-11.0)
[2018-01-08 06:17] LABS: ANION GAP 6 (6-14); BLOOD UREA NITROGEN 19 mg/dL (7-20); CALCIUM 8.1 mg/dL (8.5-10.1); CARBON DIOXIDE 27 mmol/L (21-32); CHLORIDE 105 mmol/L (98-107); CREATININE 0.4 mg/dL (0.6-1.0); GFR 175.9; GLUCOSE 114 mg/dL (70-99); POTASSIUM 4.1 mmol/L (3.5-5.1); SODIUM 138 mmol/L (136-145)
[2018-01-08 06:30] LABS: POC GLUCOSE 106 mg/dL (70-99)
[2018-01-08] MEDS: IV NORMAL SALINE 1000ML BAG 1,000 ML IV ×2 (08:00→15:12)
[2018-01-08] MEDS: ENOXAPARIN 40 MG/0.4 ML SYRINGE. SQ (08:00)
[2018-01-08] MEDS: BUDESONIDE 0.5 MG/2 ML NEBU. NEB ×2 (08:00→19:06)
[2018-01-08] MEDS: FAMOTIDINE 20 MG/2 ML VIAL IVP ×2 (08:00→20:55)
[2018-01-08] MEDS: valACYclovir 500 MG TABLET. PO ×2 (08:01→20:55)
[2018-01-08] MEDS: methylPREDNISolone SOD SUCC PF 40 MG/ML VIAL. IV ×2 (08:01→20:55)
[2018-01-08] MEDS: CHLORHEXIDINE 0.12% 15 ML MOUTHWASH. MM ×2 (08:07→21:00)
[2018-01-08 11:53] LABS: POC GLUCOSE 113 mg/dL (70-99)
[2018-01-08] MEDS: LIDO:MAALOX:BENADRYL 1:1:1 180 ML BOTTLE. PO ×2 (15:11→20:56)
[2018-01-08] MEDS: CEFEPIME HCL 1 GM in IV NORMAL SALINE 50ML 50 ML IV ×2 (15:11→23:35)
[2018-01-08] MEDS: ONDANSETRON PF 4 MG/2 ML VIAL. IV ×2 (16:13→23:35)
[2018-01-08 17:36] LABS: POC GLUCOSE 95 mg/dL (70-99)
[2018-01-09] MEDS: MORPHINE SULFATE 2 MG/ML DISP.SYRIN. IV ×3 (01:12→14:47)
[2018-01-09 01:49] LABS: POC GLUCOSE 140 mg/dL (70-99)
[2018-01-09] MEDS: IPRATRPIUM/ALBUTEROL 0.5/2.5MG 3 ML NEBU. NEB ×6 (03:24→23:41)
[2018-01-09 05:14] LABS: ADD MAN DIFF? NO
[2018-01-09 05:21] LABS: BASO % 0 % (0-3); EOS % 0 % (0-3); HEMATOCRIT 35.7 % (36.0-47.0); HEMOGLOBIN 11.7 g/dL (12.0-15.5); LYMPH # 2.5 x10^3/uL (1.0-4.8); LYMPH % 22 % (24-48); MEAN CORPUSCULAR HEMOGLOBIN 27 pg (25-35); MEAN CORPUSCULAR HGB CONC 33 g/dL (31-37); MEAN CORPUSCULAR VOLUME 83 fL (79-100); MONO # 0.8 x10^3/uL (0.0-1.1); MONO % 7 % (0-9); NEUT % 71 % (31-73); PLATELET COUNT 321 x10^3/uL (140-400); RED BLOOD COUNT 4.32 x10^6/uL (3.50-5.40); RED CELL DISTRIBUTION WIDTH 15.7 % (11.5-14.5); WHITE BLOOD COUNT 11.4 x10^3/uL (4.0-11.0)
[2018-01-09 06:00] LABS: ANION GAP 2 (6-14); BLOOD UREA NITROGEN 16 mg/dL (7-20); CALCIUM 8.1 mg/dL (8.5-10.1); CARBON DIOXIDE 31 mmol/L (21-32); CHLORIDE 107 mmol/L (98-107); CREATININE 0.5 mg/dL (0.6-1.0); GLUCOSE 103 mg/dL (70-99); POTASSIUM 4.6 mmol/L (3.5-5.1); SODIUM 140 mmol/L (136-145)
[2018-01-09] MEDS: INSULIN ASPART 300 UNITS/3 ML INSULN.PEN SQ ×2 (06:00)
[2018-01-09] MEDS: CEFEPIME HCL 1 GM in IV NORMAL SALINE 50ML 50 ML IV ×3 (06:00→22:00)
[2018-01-09] MEDS: ACYCLOVIR 5% TOPICAL OINT 5GM TUBE. TP ×5 (06:06→20:42)
[2018-01-09] MEDS: BUDESONIDE 0.5 MG/2 ML NEBU. NEB ×2 (06:17→20:00)
[2018-01-09] MEDS: ONDANSETRON PF 4 MG/2 ML VIAL. IV ×3 (07:09→20:42)
[2018-01-09] MEDS: LIDO:MAALOX:BENADRYL 1:1:1 180 ML BOTTLE. PO ×3 (07:50→20:41)
[2018-01-09 07:53] LABS: POC GLUCOSE 90 mg/dL (70-99)
[2018-01-09] MEDS: ENOXAPARIN 40 MG/0.4 ML SYRINGE. SQ (08:56)
[2018-01-09] MEDS: methylPREDNISolone SOD SUCC PF 40 MG/ML VIAL. IV (08:57)
[2018-01-09] MEDS: valACYclovir 500 MG TABLET. PO ×2 (08:57→20:51)
[2018-01-09] MEDS: CHLORHEXIDINE 0.12% 15 ML MOUTHWASH. MM (08:57)
[2018-01-09] MEDS: FAMOTIDINE 20 MG/2 ML VIAL IVP ×2 (08:57→20:42)
[2018-01-09] MEDS: LACTOBACILLUS RHAMNOSUS GG 1 CAPSULE. PO (20:42)
[2018-01-09] MEDS: IV NORMAL SALINE 1000ML BAG 1,000 ML IV (20:43)
[2018-01-09] MEDS ORDERED: MORPHINE SULFATE 4 MG/ML DISP.SYRIN. IV (20:45)
[2018-01-10] MEDS: IPRATRPIUM/ALBUTEROL 0.5/2.5MG 3 ML NEBU. NEB ×6 (03:22→23:35)
[2018-01-10] MEDS: CEFEPIME HCL 1 GM in IV NORMAL SALINE 50ML 50 ML IV ×2 (05:44→05:45)
[2018-01-10] MEDS: ACYCLOVIR 5% TOPICAL OINT 5GM TUBE. TP ×5 (05:44→21:57)
[2018-01-10] MEDS: IV NORMAL SALINE 1000ML BAG 1,000 ML IV (05:52)
[2018-01-10] MEDS: BUDESONIDE 0.5 MG/2 ML NEBU. NEB ×2 (07:32→19:43)
[2018-01-10] MEDS: LACTOBACILLUS RHAMNOSUS GG 1 CAPSULE. PO ×2 (08:55→21:56)
[2018-01-10] MEDS: FAMOTIDINE 20 MG/2 ML VIAL IVP (08:55)
[2018-01-10] MEDS: predniSONE 20 MG TABLET PO (08:56)
[2018-01-10] MEDS: ENOXAPARIN 40 MG/0.4 ML SYRINGE. SQ ×2 (08:56→09:00)
[2018-01-10] MEDS: valACYclovir 500 MG TABLET. PO ×2 (08:57→21:57)
[2018-01-10] MEDS ORDERED: ONDANSETRON ODT 4 MG TAB.RAPDIS. PO (15:00)
[2018-01-11] MEDS: IPRATRPIUM/ALBUTEROL 0.5/2.5MG 3 ML NEBU. NEB ×7 (01:41→23:36)
[2018-01-11] MEDS: BUDESONIDE 0.5 MG/2 ML NEBU. NEB ×2 (08:00→19:41)
[2018-01-11] MEDS: valACYclovir 500 MG TABLET. PO ×2 (09:15→21:31)
[2018-01-11] MEDS: ACYCLOVIR 5% TOPICAL OINT 5GM TUBE. TP ×5 (09:15→21:30)
[2018-01-11] MEDS: LACTOBACILLUS RHAMNOSUS GG 1 CAPSULE. PO ×2 (09:16→21:31)
[2018-01-11] MEDS: predniSONE 20 MG TABLET PO (09:17)
[2018-01-12] MEDS: IPRATRPIUM/ALBUTEROL 0.5/2.5MG 3 ML NEBU. NEB ×2 (07:14→11:52)
[2018-01-12] MEDS: BUDESONIDE 0.5 MG/2 ML NEBU. NEB (07:14)
[2018-01-12] MEDS: ACYCLOVIR 5% TOPICAL OINT 5GM TUBE. TP ×2 (07:19→10:00)
[2018-01-12] MEDS: LACTOBACILLUS RHAMNOSUS GG 1 CAPSULE. PO (09:51)
[2018-01-12] MEDS: ACETAMINOPHEN 325 MG TABLET. PO (09:51)
[2018-01-12] MEDS: valACYclovir 500 MG TABLET. PO (09:51)
[2018-01-12] MEDS: predniSONE 20 MG TABLET PO (09:52)
[2018-01-12] MEDS ORDERED: PHENAZOPYRIDINE 200 MG TABLET. PO ×2 (10:45→11:00)
[2018-01-12] MEDS: AMOXICILLIN/K CLAV 875/125MG TABLET. PO (12:38)
[2018-01-12 13:51] LABS: BILIRUBIN,URINE NEGATIVE (NEG); CLARITY,URINE CLEAR; COLOR,URINE YELLOW; GLUCOSE,URINE NEGATIVE (NEG); NITRITE,URINE NEGATIVE (NEG); PH,URINE 5.5; PROTEIN,URINE 100 mg/dL (NEG-TRACE); UROBILINOGEN,URINE 0.2 mg/dL (0.2 mg/dL)
[2018-01-12 14:51] LABS: BACTERIA,URINE FEW /HPF (0-FEW); RBC,URINE 20-40 /HPF (0-2); SQUAMOUS EPITHELIAL CELL,UR MANY /LPF; YEAST,URINE PRESENT /HPF
[2018-01-13 02:18] LABS: C DIFF BY PCR Negative (Negative)
== END 2018-01-12 13:45 | disposition home or self-care (01) | DRG 870 ==
LOC: 6 SOUTH 01-08 14:13 → ER 03:49 → 5 SOUTH 05:24 → 1 WEST ICU 13:00
PROVIDERS: Family Medicine
PROC: 0BH17EZ Insertion of Endotracheal Airway into Trachea, Via Natural or Artificial Opening (ICD-10-PCS; principal; 2017-12-30 14:51)
PROC: BT1D1ZZ Fluoroscopy of Right Kidney, Ureter and Bladder using Low Osmolar Contrast (ICD-10-PCS; 2017-12-30 14:51)
PROC: 0T768DZ Dilation of Right Ureter with Intraluminal Device, Via Natural or Artificial Opening Endoscopic (ICD-10-PCS; 2017-12-30 14:51)
PROC: 5A1955Z Respiratory Ventilation, Greater than 96 Consecutive Hours (ICD-10-PCS; 2017-12-30 14:51)
PROC: 5A09357 Assistance with Respiratory Ventilation, Less than 24 Consecutive Hours, Continuous Positive Airway Pressure (ICD-10-PCS; 2017-12-30 14:51)
PROC: 5A09357 Assistance with Respiratory Ventilation, Less than 24 Consecutive Hours, Continuous Positive Airway Pressure (ICD-10-PCS; 2017-12-30 14:51)
DX: A41.9 Sepsis, unspecified organism (principal); J96.01 Acute respiratory failure with hypoxia; R65.21 Severe sepsis with septic shock; G62.81 Critical illness polyneuropathy; G93.40 Encephalopathy, unspecified; J10.08 Influenza due to other identified influenza virus with other specified pneumonia; J15.9 Unspecified bacterial pneumonia; E46 Unspecified protein-calorie malnutrition; N17.9 Acute kidney failure, unspecified; B00.2 Herpesviral gingivostomatitis and pharyngotonsillitis; J44.0 Chronic obstructive pulmonary disease with (acute) lower respiratory infection; N13.1 Hydronephrosis with ureteral stricture, not elsewhere classified; N20.2 Calculus of kidney with calculus of ureter; N39.0 Urinary tract infection, site not specified; I27.21 Secondary pulmonary arterial hypertension; D72.823 Leukemoid reaction; Z68.35 Body mass index [BMI] 35.0-35.9, adult; G72.9 Myopathy, unspecified; E66.9 Obesity, unspecified; F17.200 Nicotine dependence, unspecified, uncomplicated; F41.9 Anxiety disorder, unspecified; F32.9 Major depressive disorder, single episode, unspecified; J10.1 Influenza due to other identified influenza virus with other respiratory manifestations; N76.0 Acute vaginitis; R31.0 Gross hematuria; Z87.440 Personal history of urinary (tract) infections; Z87.442 Personal history of urinary calculi; Z88.1 Allergy status to other antibiotic agents; Z88.2 Allergy status to sulfonamides; Z88.8 Allergy status to other drugs, medicaments and biological substances
CPT/HCPCS: 36415; 36600; 71045; 71275; 74018; 74176; 76000; 80047; 80048; 80053; 80076; 81001; 81025; 82805; 82962; 83605; 83690; 84145; 85007; 85025; 85049; 85379; 85384; 85610; 85730; 87040; 87070; 87086; 87186; 87205; 87324; 87641; 87804; 87804-59; 92526-GN; 92610-GN; 94002; 94003; 94640; 94660; 96374; 96375; 97110-GP; 97116-GP; 97162-GP; 97166-GO; 97530-GO; 97530-GP; 97535-GO; 99285; 99285-25; C1769; J0330; J0692; J0696; J0878; J1650; J1815; J1885; J1940; J1956; J2060; J2250; J2270; J2370; J2405; J2704; J2710; J2920; J2930; J3010; J3490; J7030; J7120; J7512; J7613; J7620; J7626; P9045; Q9967; S0028

== ENCOUNTER → 2018-01-19 | Outpatient (CLI) | payer BC | END | disposition home or self-care (01) | LOC: RAD 09:54 | DX: N20.0 Calculus of kidney (principal) | CPT/HCPCS: 74018 ==

== ENCOUNTER 2018-03-21 15:47 | Emergency (ER) | payer BC ==
[2018-03-21 18:02] LABS: ADD MAN DIFF? NO
[2018-03-21 18:03] LABS: BASO # 0.1 x10^3/uL (0.0-0.2); BASO % 1 % (0-3); EOS # 0.2 x10^3/uL (0.0-0.7); EOS % 3 % (0-3); HEMATOCRIT 35.4 % (36.0-47.0); HEMOGLOBIN 11.9 g/dL (12.0-15.5); LYMPH # 3.1 x10^3/uL (1.0-4.8); LYMPH % 42 % (24-48); MEAN CORPUSCULAR HEMOGLOBIN 27 pg (25-35); MEAN CORPUSCULAR HGB CONC 34 g/dL (31-37); MEAN CORPUSCULAR VOLUME 81 fL (79-100); MONO # 0.7 x10^3/uL (0.0-1.1); MONO % 9 % (0-9); NEUT # 3.4 x10^3uL (1.8-7.7); NEUT % 45 % (31-73); PLATELET COUNT 313 x10^3/uL (140-400); RED BLOOD COUNT 4.37 x10^6/uL (3.50-5.40); RED CELL DISTRIBUTION WIDTH 15.9 % (11.5-14.5); WHITE BLOOD COUNT 7.5 x10^3/uL (4.0-11.0)
[2018-03-21 18:17] LABS: ANION GAP 10 (6-14); BLOOD UREA NITROGEN 13 mg/dL (7-20); CALCIUM 8.3 mg/dL (8.5-10.1); CARBON DIOXIDE 25 mmol/L (21-32); CHLORIDE 107 mmol/L (98-107); CREATININE 0.8 mg/dL (0.6-1.0); GLUCOSE 95 mg/dL (70-99); POTASSIUM 3.8 mmol/L (3.5-5.1); SODIUM 142 mmol/L (136-145)
[2018-03-21 18:30] LABS: NT-PRO BNP 283 pg/mL (0-124)
== END 2018-03-21 20:01 | disposition home or self-care (01) ==
LOC: ER 15:47
DX: R60.0 Localized edema (principal); Z88.2 Allergy status to sulfonamides; Z88.1 Allergy status to other antibiotic agents; Z88.5 Allergy status to narcotic agent; Z87.442 Personal history of urinary calculi
CPT/HCPCS: 36415; 80048; 83880; 85025; 99284

== ENCOUNTER 2020-01-31 18:25 | Emergency (ER) | payer BC ==
[~2020-01-31] VITALS: Ht 157.5 cm; Wt 90.1 kg
[~2020-01-31 18:25] MED LIST: BUDE180A IH; BUPR150T27 PO; FURO20TA3 PO; LEVO500T59 PO; PHEN-318 PO
[2020-01-31 19:50] VITALS: BP 123/68
--- NOTE | 2020-01-31 20:49 | PHYS DOC ---
Past Medical History Past Medical History: Kidney Stone, Pneumonia, Other Additional Past Medical Histor: intubation due to influenza and pneumonia Past Surgical History: Other Additional Past Surgical Histo: cystoscopy with stent Smoking Status: Former Smoker Alcohol Use: Occasionally Drug Use: None Adult General Chief Complaint Chief Complaint: FLU SYMPTOM [facility] HPI Patient is a 44 year old [female who presents with cough, shortness of breath, malaise. Patient states that she has been feeling very shortness of breath today, had some exertional dyspnea after walking a while. States she had used her inhaler one time today which seemed to help her, but it did seem to make her cough and wheeze little bit more. States she did feel better shortly after taking this. States she has not had any fevers, but she has had influenza multiple times and she has never had a fever with her influenza. States she had influenza a and B in November of this year. States last her she also had influenza a and B earlier in the year, and later on had influenza B a second time. Also reports she has received her flu vaccination. 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 Has had no known exposure to patient's with confirmed coronavirus. States she had tried Tums, some Tylenol for any discomfort, but it did not really seem to help her symptoms. States she was just more concerned o ricardo her shortness of breath, and also having some chest tightness which is been constant ever since yesterday. States her symptoms have been going on and off for the last couple days, however had worsened much today. Review of Systems Review of Systems Constitutional: Denies fever or chills does report body aches and fatigue [] Eyes: Denies change in visual acuity, redness, or eye pain [] HENT: Denies nasal congestion or sore throat [] Respiratory: Does report shortness of breath after walking distance today, occasional cough. [] Cardiovascular: No additional information not addressed in HPI [] GI: Denies abdominal pain, nausea, vomiting, bloody stools or diarrhea [] : Denies dysuria or hematuria [] Musculoskeletal: Denies back pain or joint pain [] Integument: Denies rash or skin lesions [] Neurologic: Denies headache, focal weakness or sensory changes [] Endocrine: Denies polyuria or polydipsia [] All other systems were reviewed and found to be within normal limits, except as documented in this note. Allergies Allergies Allergies Coded Allergies Type Severity Reaction Last Updated Verified Sulfa (Sulfonamide Antibiotics) Allergy Intermediate Rash 01/04/18 Yes Tetracyclines Allergy Intermediate Rash 01/04/18 Yes hydrocodone Allergy Intermediate Rash 01/04/18 Yes Physical Exam Physical Exam Constitutional: Well developed, well nourished, no acute distress, non-toxic appearance. [] HENT: Normocephalic, atraumatic, bilateral external ears normal, oropharynx mo ist, no oral exudates, nose normal. [] Eyes: PERRLA, EOMI, conjunctiva normal, no discharge. [] Neck: Normal range of motion, no tenderness, supple, no stridor. [] Cardiovascular:Heart rate regular rhythm, no murmur [] Lungs & Thorax: Bilateral breath sounds clear to auscultation, however faint expiratory wheeze noted right upper chest [] Abdomen: Bowel sounds normal, soft, no tenderness, no masses, no pulsatile masses. [] Skin: Warm, dry, no erythema, no rash. [] Back: No tenderness, no CVA tenderness. [] Extremities: No tenderness, no cyanosis, no clubbing, ROM intact, no edema. [] Neurologic: Alert and oriented X 3, normal motor function, normal sensory function, no focal deficits noted. [] Psychologic: Affect normal, judgement normal, mood normal. [] Current Patient Data Vital Signs Vital Signs Date Time Temp Pulse Resp B/P (MAP) Pulse Ox O2 Delivery O2 Flow Rate FiO2 01/31/20 19:50 98.2 90 18 123/68 (86) 97 Room Air 98.2 Lab Values Laboratory Tests Test 01/31/20 21:20 01/31/20 21:25 White Blood Count 8.0 x10^3/uL (4.0-11.0) Red Blood Count 4.80 x10^6/uL (3.50-5.40) Hemoglobin 12.1 g/dL (12.0-15.5) Hematocrit 36.7 % (36.0-47.0) Mean Corpuscular Volume 76 fL (79-100) L Mean Corpuscular Hemoglobin 25 pg (25-35) Mean Corpuscular Hemoglobin Concent 33 g/dL (31-37) Red Cell Distribution Width 17.1 % (11.5-14.5) H Platelet Count 351 x10^3/uL (140-400) Neutrophils (%) (Auto) 52 % (31-73) Lymphocytes (%) (Auto) 38 % (24-48) Monocytes (%) (Auto) 7 % (0-9) Eosinophils (%) (Auto) 2 % (0-3) Basophils (%) (Auto) 1 % (0-3) Neutrophils # (Auto) 4.2 x10^3/uL (1.8-7.7) Lymphocytes # (Auto) 3.1 x10^3/uL (1.0-4.8) Monocytes # (Auto) 0.6 x10^3/uL (0.0-1.1) Eosinophils # (Auto) 0.1 x10^3/uL (0.0-0.7) Basophils # (Auto) 0.1 x10^3/uL (0.0-0.2) Sodium Level 141 mmol/L (136-145) Potassium Level 4.1 mmol/L (3.5-5.1) Chloride Level 106 mmol/L (98-107) Carbon Dioxide Level 27 mmol/L (21-32) Anion Gap 8 (6-14) Blood Urea Nitrogen 9 mg/dL (7-20) Creatinine 0.8 mg/dL (0.6-1.0) Estimated GFR (Cockcroft-Gault) 78.3 Glucose Level 80 mg/dL (70-99) Calcium Level 8.5 mg/dL (8.5-10.1) Troponin I Quantitative < 0.017 ng/mL (0.000-0.055) Influenza Type A Antigen Negative (NEGATIVE) Influenza Type B Antigen Negative (NEGATIVE) Laboratory Tests 01/31/20 21:20 Laboratory Tests 01/31/20 21:20 EKG EKG [] Radiology/Procedures Radiology/Procedures No acute findings, per Dr Collado[] Course & Med Decision Making Course & Med Decision Making Pertinent Labs and Imaging studies reviewed. (See chart for details) [] Reviewed findings with patient, without acute abnormalities. Discussed consideration for continued use of inhaler as needed. Will provide short course of steroids. Patient does report she has had some nasal congestion in the last couple days as well, recommend patient do take some Claritin or Zyrtec decongestants. Patient agreed with this plan without further questions or concerns Gus Disclaimer Gus Disclaimer This electronic medical record was generated, in whole or in part, using a voice recognition dictation system. Departure Departure Impression: Primary Impression: Shortness of breath on exertion Disposition: 01 HOME, SELF-CARE Condition: STABLE Referrals: NELLIE VILLANUEVA MD (PCP) Patient Instructions: Shortness of Breath, [id number] Additional Instructions: As we discussed, you are providing a short course of steroids which would help with your breathing. You take this once a day as prescribed. Use your inhaler as needed we have some shortness of breath. Stay hydrated. Get some rest. You may want to consider trying some decongestants, such as Claritin or Zyrtec for your nasal congestion. You take 1 10 mg tablet each day for this. Follow-up with your primary care provider as needed Scripts Prednisone (PREDNISONE ) 10 Mg Tablet 1 TAB PO DAILY for 5 Days, #5 TAB 0 Refills Prov: JANELLE GONSALEZ APRN 01/31/20 JANELLE GONSALEZ APRN Jan 31, 2020 20:49
[2020-01-31 21:32] LABS: BASO # 0.1 x10^3/uL (0.0-0.2); BASO % 1 % (0-3); EOS # 0.1 x10^3/uL (0.0-0.7); EOS % 2 % (0-3); HEMATOCRIT 36.7 % (36.0-47.0); HEMOGLOBIN 12.1 g/dL (12.0-15.5); LYMPH # 3.1 x10^3/uL (1.0-4.8); LYMPH % 38 % (24-48); MEAN CORPUSCULAR HEMOGLOBIN 25 pg (25-35); MEAN CORPUSCULAR HGB CONC 33 g/dL (31-37); MEAN CORPUSCULAR VOLUME 76 fL (79-100); MONO # 0.6 x10^3/uL (0.0-1.1); MONO % 7 % (0-9); NEUT # 4.2 x10^3/uL (1.8-7.7); NEUT % 52 % (31-73); PLATELET COUNT 351 x10^3/uL (140-400); RED CELL DISTRIBUTION WIDTH 17.1 % (11.5-14.5)
[2020-01-31 21:39] LABS: CALCIUM 8.5 mg/dL (8.5-10.1); CREATININE 0.8 mg/dL (0.6-1.0); GFR 78.3; POTASSIUM 4.1 mmol/L (3.5-5.1)
[2020-01-31 21:52] LABS: INFLUENZA A PATIENT NEGATIVE (NEGATIVE); INFLUENZA B PATIENT NEGATIVE (NEGATIVE)
[2020-01-31] MEDS ORDERED: PRED-220 PO (22:10)
--- NOTE | 2020-01-31 22:46 | RAD ---
EXAM: PA and Lateral Views of the Chest DATE: 01/31/2020 8:52 PM INDICATION: Shortness of air, cough COMPARISON: 01/07/2018 FINDINGS/ IMPRESSION: 1. The heart is not enlarged. 2. Mediastinal and hilar contours are stable. 3. No lobar consolidation although linear opacities are seen in the lower lobe posteriorly on the lateral view, possibly scarring/atelectasis although developing consolidation may have similar appearance. 4. No pleural effusion or pneumothorax. Electronically signed by: Phong Horowitz MD (01/31/2020 10:43 PM) [id number]
== END 2020-01-31 22:25 | disposition home or self-care (01) ==
LOC: ER 18:25
DX: R06.02 Shortness of breath (principal); R05 Cough; R53.81 Other malaise; Z87.442 Personal history of urinary calculi; Z98.890 Other specified postprocedural states; Z88.5 Allergy status to narcotic agent; Z88.2 Allergy status to sulfonamides; Z88.1 Allergy status to other antibiotic agents
CPT/HCPCS: 36415; 71046; 80048; 84484; 85025; 87804; 99284